=== PATIENT | female | born 1970 | race Caucasian/White ===

== ENCOUNTER 2016-06-14 20:31 | Emergency (ER) | payer BC ==
[~2016-06-14] VITALS: Ht 162.6 cm; Wt 61.5 kg
[~2016-06-14 20:31] MED LIST: BACTDS PO; CEPH-443 PO; CLOT21CR4 VAG; CLOT30CR24 TOP; FLUC150T17 PO; HYDR-906 PO; IBUP-1542 PO; MECL25TA2 PO; SULF1TAB31 PO; ULT50 PO
[2016-06-14 20:47] VITALS: Ht 162.6 cm; Wt 61.5 kg
[2016-06-14] MEDS ORDERED: KETOROLAC 30 MG INJ IV STA (23:16)
[2016-06-14 23:40] VITALS: TEMP 98
--- NOTE | 2016-06-14 23:48 | RADRPT ---
PROCEDURE: XR Chest. CLINICAL INDICATION: Chest Pain. TECHNIQUE: Single frontal chest x-ray. COMPARISON: None. FINDINGS: The lungs are clear. No focal opacification is seen. The cardiomediastinal silhouette is unremarka ble. Minimal S-shaped curvature of the thoracic spine is apparent. ECG leads projected over the ch est. IMPRESSION: 1. There is no acute cardiopulmonary process. RPTAT: HJES .Yasmani Mojica MD, MD Date Time Electronically viewed and signed by .Yasmani Mojica MD, on 06/14/2016 23:47 .S/
[2016-06-15 00:02] LABS: CHLORIDE 103 mmol/L (97-110); INR 0.96; POTASSIUM 4.1 mmol/L (3.5-5.1); PROTIME 12.8 Sec (12.2-14.2); SODIUM 143 mmol/L (135-144)
[2016-06-15 00:03] LABS: PARTIAL THROMBOPLASTIN TIME 30.9 Sec (25.0-35.0)
[2016-06-15 00:05] LABS: ANION GAP 17 (8-16); BLOOD UREA NITROGEN 14 mg/dl (7-20); CARBON DIOXIDE 27 mmol/L (21-31); CREATININE 0.53 mg/dl (0.44-1.00)
[2016-06-15 00:06] LABS: CALCIUM 9.4 mg/dl (8.4-10.2); GLUCOSE 93 mg/dl (70-220)
[2016-06-15 00:19] LABS: BASOPHILS % 0.4 % (0.0-2.0); EOSINOPHILS # 0.1 10^3/ul (0.0-0.5); EOSINOPHILS % 0.9 % (0.0-7.0); HEMATOCRIT 36.7 % (37.0-47.0); HEMOGLOBIN 12.4 g/dl (12.0-16.0); LYMPHOCYTES # 4.7 10^3/ul (0.8-2.9); LYMPHOCYTES % 40.7 % (15.0-51.0); MEAN CORPUSCULAR HEMOGLOBIN 32.2 pg (29.0-33.0); MEAN CORPUSCULAR HGB CONC 33.7 g/dl (32.0-37.0); MEAN CORPUSCULAR VOLUME 95.7 fl (82.0-101.0); MEAN PLATELET VOLUME 9.4 fl (7.4-10.4); MONOCYTE # 1.1 10^3/ul (0.3-0.9); MONOCYTES % 9.4 % (0.0-11.0); NEUTROPHIL # 5.7 10^3/ul (1.6-7.5); NEUTROPHILS % 48.6 % (39.0-77.0); PLATELET COUNT 310 10^3/UL (140-440); RED BLOOD COUNT 3.84 10^6/ul (4.20-5.40); RED CELL DISTRIBUTION WIDTH 12.9 % (11.5-14.5); UNCORRECTED WBC 11.6 10^3/ul (4.8-10.8); WHITE BLOOD COUNT 11.6 10^3/ul (4.8-10.8)
[2016-06-15 00:20] LABS: CONDITION 1
[2016-06-15 00:22] LABS: TROPONIN-I < 0.010 ng/ml (0.00-0.12)
[2016-06-15 01:30] VITALS: BP 118/70; PULSE 79; RESP 14
--- NOTE | 2016-06-15 04:10 | ERD ---
ER Documentation Chief Complaint Date/Time DATE: 06/15/16 TIME: 04:06 Chief Complaint CP since 1999 and ROMERO. HPI 46-year-old female with no significant past medical history presenting with left -sided chest pain. She states that the pain started while she was at work. She has had 3 episodes of sharp chest pain in the left side of her chest that lasts only a few seconds. She had no associated shortness of breath or sweating. She had mild dizziness. She also had a gradual onset bitemporal headache that is the only symptom she complains of now. Her chest pain has since resolved. She denies any fevers, chills, nausea, vomiting, vision change. No recent surgery, immobilization, estrogen use, or history of blood clotting disorder. ROS All systems reviewed and are negative except as per history of present illness. Medications Home Meds Active Scripts Fluconazole* (Diflucan*) 150 Mg Tablet, 150 MG PO DAILY for 1 Day, #1 TAB Prov:ALEJANDRO ARNOLD PA-C 04/05/16 Ibuprofen* (Motrin*) 600 Mg Tab, 600 MG PO Q6, #30 TAB Prov:ALEJANDRO ARNOLD PA-C 04/05/16 Hydrocodone/Acetaminophen ([place] 5-325 Tablet) 1 Each Tablet, 1 TAB PO Q6H Y for PAIN, #5 TAB Prov:ALEJANDRO ARNOLD PA-C 04/05/16 Sulfamethoxazole/Trimethoprim (Bactrim Ds Tablet) 1 Each Tablet, 1 EACH PO BID for 7 Days, TAB Prov:QUINCY VALENZUELA MD 03/29/16 Discontinued Scripts Ibuprofen* (Motrin*) 600 Mg Tab, 600 MG PO Q6H Y for PAIN AND OR ELEVATED TEMP, #30 TAB Prov:QUINCY VALENZUELA MD 03/29/16 Meclizine Hcl* (Antivert*) 25 Mg Tablet, 25 MG PO Q6H Y for DIZZINESS, #15 TAB Prov:MAGRI MCELAN MD 02/12/16 Ibuprofen* (Motrin*) 600 Mg Tab, 600 MG PO Q6, #14 TAB Prov:MARGI MCLEAN MD 02/12/16 Clotrimazole* (Gyne-Lotrimin 3*) 21 Gm Cream.appl, 1 APPLIC VAG HS for 3 Days, EA Prov:GER LOPEZ DO 09/30/15 Cephalexin* (Keflex*) 500 Mg Capsule, 500 MG PO QID for 5 Days, CAP Prov:GER LOPEZ DO 09/30/15 Tramadol HCl (Tramadol HCl) 50 Mg Tablet, 50 MG PO Q4 Y for PAIN, #10 TAB Prov:GER LOPEZ DO 09/30/15 Ibuprofen* (Motrin*) 600 Mg Tab, 600 MG PO Q6H Y for PAIN AND OR ELEVATED TEMP, #30 TAB Prov:CAR MENSAH. [employer] 07/24/15 Clotrimazole* (Clotrimazole* AF) 1% - 30 Gm Cream.gm., 1 APPLIC TOP BID for 14 Days, TUB Prov:CAR MENSAH [employer] 07/24/15 Cephalexin* (Keflex*) 500 Mg Capsule, 500 MG PO BID for 7 Days, CAP Prov:CAR MENSAH. [employer] 07/24/15 Ibuprofen* (Motrin*) 600 Mg Tab, 600 MG PO Q6, #20 TAB Prov:MARGI MCLEAN MD 05/29/15 Tramadol HCl (Tramadol HCl) 50 Mg Tablet, 50 MG PO Q4 Y for PAIN, #16 TAB Prov:MARGI MCLEAN MD 05/29/15 Fluconazole* (Diflucan*) 150 Mg Tablet, 150 MG PO ONCE, #2 TAB Take 1 tab po once. Take 1 tab once 1 week later. Prov:LISA TERRAZAS PA-C 04/03/15 Sulfamethoxazole-Trimethoprim* (Bactrim* DS) 800-160 Mg Tab, 1 TAB PO BID for 7 Days, TAB Prov:LISA TERRAZAS PA-C 04/03/15 Allergies Allergies: Coded Allergies: ciprofloxacin (Verified Allergy, Unknown, 02/12/16) PMhx/Soc Medical and Surgical Hx: pt denies Medical Hx, pt denies Surgical Hx History of Surgery: No Anesthesia Reaction: No Hx Neurological Disorder: No Hx Respiratory Disorders: No Hx Cardiac Disorders: No Hx Psychiatric Problems: No Hx Miscellaneous Medical Probl: No Hx Alcohol Use: No Hx Substance Use: No Hx Tobacco Use: No Smoking Status: Never smoker FmHx Family History: No coronary disease, No diabetes Physical Exam Vitals Vital Signs Date Time Temp Pulse Resp B/P Pulse Ox O2 Delivery O2 Flow Rate FiO2 06/15/16 01:30 79 14 118/70 98 Room Air 06/15/16 01:00 83 16 104/56 98 Room Air 06/15/16 00:00 76 20 134/82 100 Room Air 06/14/16 23:40 98.0 76 20 154/84 100 Room Air 06/14/16 20:47 97.9 81 16 158/77 99 Physical Exam Const: Well-appearing, no distress, nontoxic, no diaphoresis Head: Atraumatic Eyes: Normal Conjunctiva, Rebecca, EOMI ENT: Normal External Ears, Nose and Mouth. Neck: Full range of motion..~ No meningismus. Resp: Clear to auscultation bilaterally Cardio: Regular rate and rhythm, no murmurs Abd: Soft, non tender, non distended. Normal bowel sounds Skin: No petechiae or rashes Back: No midline or flank tenderness Ext: No cyanosis, or edema, 2+ distal pulses, equal bilaterally Neur: Awake and alert and oriented 3, cerebellar exam normal, gait normal, strength and sensations intact in all 4 extremities Psych: Normal Mood and Affect Result Diagram: 06/14/165 06/14/16 2325 Results 24 hrs Laboratory Tests Test 06/14/16 23:25 Activated Partial Thromboplast Time 30.9Sec Anion Gap 17 Basophils # 0.010^3/ul Basophils % 0.4% Blood Urea Nitrogen 14mg/dl Calcium Level 9.4mg/dl Carbon Dioxide Level 27mmol/L Chloride Level 103mmol/L Creatinine 0.53mg/dl Eosinophils # 0.110^3/ul Eosinophils % 0.9% Glucose Level 93mg/dl Hematocrit 36.7% Hemoglobin 12.4g/dl INR International Normalized Ratio 0.96 Lymphocytes # 4.710^3/ul Lymphocytes % 40.7% Mean Corpuscular Hemoglobin 32.2pg Mean Corpuscular Hemoglobin Concent 33.7g/dl Mean Corpuscular Volume 95.7fl Mean Platelet Volume 9.4fl Monocytes # 1.110^3/ul Monocytes % 9.4% Neutrophils # 5.710^3/ul Neutrophils % 48.6% Nucleated Red Blood Cells # 0.010^3/ul Nucleated Red Blood Cells % 0.0/100WBC Platelet Count 58459^3/UL Potassium Level 4.1mmol/L Prothrombin Time 12.8Sec Prothrombin Time Ratio 1.0 Red Blood Count 3.8410^6/ul Red Cell Distribution Width 12.9% Sodium Level 143mmol/L Troponin I < 0.010ng/ml White Blood Count 11.610^3/ul Current Medications Medications (Trade) Dose Ordered Sig/Rhys Route PRN Reason Start Time Stop Time Status Last Admin Dose Admin Ketorolac Tromethamine (Toradol) 30 mg ONCE STAT IV 06/14/16 23:16 06/14/16 23:18 DC 06/14/16 23:34 Procedures/MDM EKG: Rate/Rhythm: Normal Sinus Rhythm QRS, ST, T-waves: No changes consistent w/ acute ischemia Impression: No evidence of ischemia or arrhythmia The patient presents with chest pain. Vitals are stable. I considered pulmonary embolism, aortic dissection, pneumothorax among other diagnoses. For her headache, her symptoms are most consistent with a tension headache. I have a low suspicion for acute intracranial hemorrhage, meningitis, encephalitis, stroke or carotid dissection. Toradol was given for her headache with resolution EKG showed no evidence of ischemia. Labs were all within normal limits. Shared decision making occurred with patient and the decision has been made to discharge the patient for outpatient evaluation within 72 hours. Patient instructed to arrange follow up with PCP in the next 2 days and return to the ED for any new or worsening symtpoms. Departure Diagnosis: Primary Impression: Chest pain in adult Additional Impression: Headache Headache type: tension-type Headache chronicity pattern: acute headache Intractability: not intractable Qualified Code: G44.209 - Acute non intractable tension-type headache Condition: Stable Patient Instructions: Self-Care for Headaches, Chest Pain, Uncertain Cause SUSAN HENDERSON MD Jun 15, 2016 04:10
== END 2016-06-15 03:20 | disposition home or self-care (01) ==
LOC: E/R 20:31
DX: R07.9 Chest pain, unspecified (principal); G44.209 Tension-type headache, unspecified, not intractable; R40.2142 Coma scale, eyes open, spontaneous, at arrival to emergency department; R40.2362 Coma scale, best motor response, obeys commands, at arrival to emergency department; R40.2252 Coma scale, best verbal response, oriented, at arrival to emergency department
CPT/HCPCS: 36415; 71010; 80048; 84484; 85025; 85610; 85730; 93005; 96374; J1885; Z7502

== ENCOUNTER 2016-10-10 11:57 | Emergency (ER) | payer BC ==
[~2016-10-10] VITALS: Ht 160 cm; Wt 59.0 kg
[~2016-10-10 11:57] MED LIST changes: -BACTDS PO; -CEPH-443 PO; -CLOT21CR4 VAG; -CLOT30CR24 TOP; -MECL25TA2 PO; -ULT50 PO
[2016-10-10 12:02] VITALS: Ht 160 cm; Wt 59.0 kg
[2016-10-10] MEDS ORDERED: KETOROLAC 30 MG INJ IV STA (13:16)
[2016-10-10 13:41] LABS: ADD SCAN DIFF NO
[2016-10-10 13:44] LABS: HEMATOCRIT 35.8 % (37.0-47.0); MEAN CORPUSCULAR HEMOGLOBIN 31.9 pg (29.0-33.0); MEAN CORPUSCULAR HGB CONC 33.5 g/dl (32.0-37.0); MEAN CORPUSCULAR VOLUME 95.2 fl (82.0-101.0); PLATELET COUNT 297 10^3/UL (140-415); RED BLOOD COUNT 3.76 10^6/ul (4.20-5.40); RED CELL DISTRIBUTION WIDTH 13.2 % (11.5-14.5); WHITE BLOOD COUNT 8.2 10^3/ul (4.8-10.8)
[2016-10-10 13:46] LABS: MEAN PLATELET VOLUME 11.6 fl (7.4-10.4)
[2016-10-10 14:01] LABS: ALBUMIN 4.5 g/dl (3.3-4.9); ALBUMIN/GLOBULIN RATIO 1.04; BILIRUBIN,INDIRECT 0.2 mg/dl (0-1.1); BILIRUBIN,TOTAL 0.2 mg/dl (0.2-1.3); CALCIUM 9.5 mg/dl (8.4-10.2); CREATININE 0.51 mg/dl (0.44-1.00); POTASSIUM 4.2 mmol/L (3.5-5.1); TOTAL PROTEIN 8.8 g/dl (6.1-8.1)
[2016-10-10 14:20] LABS: ADD UMIC YES; URINE BILIRUBIN (Dip) NEGATIVE (NEGATIVE); URINE BLOOD (Dip) 2+ (NEGATIVE); URINE COLOR LT. YELLOW (YELLOW); URINE GLUCOSE (Dip) NEGATIVE (NEGATIVE); URINE KETONES (Dip) NEGATIVE (NEGATIVE); URINE LEUKOCYTE ESTERASE (Dip) 2+ (NEGATIVE); URINE NITRITE (Dip) NEGATIVE (NEGATIVE); URINE TOTAL PROTEIN (Dip) NEGATIVE (NEGATIVE); URINE UROBILINOGEN (Dip) 0.2 E.U./dL (0.1-1.0)
[2016-10-10 14:34] LABS: URINE RBCS 0-2 /HPF (0)
[2016-10-10 14:35] LABS: BACTERIA,URINE FEW
[2016-10-10 14:51] LABS: LYMPHOCYTES # 5.2 10^3/ul (0.8-2.9); MONOCYTE # 0.7 10^3/ul (0.3-0.9); NEUTROPHIL # 2.2 10^3/ul (1.6-7.5)
[2016-10-10 14:52] LABS: PLATELETS CLUMPS OCCASIONAL
[2016-10-10] MEDS ORDERED: CEFTRIAXONE 1 GM/50 ML (PMX) 50 ML IVPB ONE (15:30)
[2016-10-10] MEDS ORDERED: CEPH-443 PO (15:31)
[2016-10-10] MEDS ORDERED: IBUP-1542 PO (15:34)
--- NOTE | 2016-10-10 15:46 | ERD ---
ER Documentation Chief Complaint Date/Time DATE: 10/10/16 TIME: 15:45 Chief Complaint lower abdominal pain x2 days HPI This 46-year-old female complains of lower abdominal pain for 2 days. She possibly has some urinary complaints. She denies fevers, vomiting. She denies any specific right or left-sided pain. The pain is mostly in the middle of the lower abdomen. ROS All systems reviewed and are negative except as per history of present illness. Medications Home Meds Active Scripts Ibuprofen* (Motrin*) 600 Mg Tab, 600 MG PO Q6, #15 TAB Prov:MARGI MCLEAN MD 10/10/16 Cephalexin* (Keflex*) 500 Mg Capsule, 500 MG PO QID for 5 Days, CAP Prov:MARGI MCLEAN MD 10/10/16 Fluconazole* (Diflucan*) 150 Mg Tablet, 150 MG PO DAILY for 1 Day, #1 TAB Prov:ALEJANDRO ARNOLD PA-C 04/05/16 Ibuprofen* (Motrin*) 600 Mg Tab, 600 MG PO Q6, #30 TAB Prov:ALEJANDRO ARNOLD PA-C 04/05/16 Hydrocodone/Acetaminophen ([place] 5-325 Tablet) 1 Each Tablet, 1 TAB PO Q6H Y for PAIN, #5 TAB Prov:ALEJANDRO ARNOLD PA-C 04/05/16 Sulfamethoxazole/Trimethoprim* (Bactrim Ds* Tablet) 1 Each Tablet, 1 EACH PO BID for 7 Days, TAB Prov:QUINCY VALENZUELA MD 03/29/16 Allergies Allergies: Coded Allergies: ciprofloxacin (Verified Allergy, Unknown, 02/12/16) PMhx/Soc Medical and Surgical Hx: pt denies Medical Hx History of Surgery: Yes (c/s) Anesthesia Reaction: No Hx Neurological Disorder: No Hx Respiratory Disorders: No Hx Cardiac Disorders: No Hx Psychiatric Problems: No Hx Miscellaneous Medical Probl: No Hx Alcohol Use: No Hx Substance Use: No Hx Tobacco Use: No Smoking Status: Never smoker Physical Exam Vitals Vital Signs Date Time Temp Pulse Resp B/P Pulse Ox O2 Delivery O2 Flow Rate FiO2 10/10/16 12:02 97.9 78 18 132/86 98 Physical Exam Const: [] Head: Atraumatic Eyes: Normal Conjunctiva ENT: Normal External Ears, Nose and Mouth. Neck: Full range of motion..~ No meningismus. Resp: Clear to auscultation bilaterally Cardio: Regular rate and rhythm, no murmurs Abd: Soft, mild lower abdominal tenderness primarily in the suprapubic and lower abdomen. No tenderness at McBurney's point no Burdick sign. No rebound., non distended. Normal bowel sounds Skin: No petechiae or rashes Back: No midline or flank tenderness Ext: No cyanosis, or edema Neur: Awake and alert Psych: Normal Mood and Affect Result Diagram: 10/10/16 1335 10/10/16 1335 Results 24 hrs Laboratory Tests Test 10/10/16 13:30 10/10/16 13:35 Urine Color LT. YELLOW Urine Clarity CLEAR Urine pH 6.5 Urine Specific [place] 1.010 Urine Ketones NEGATIVE Urine Nitrite NEGATIVE Urine Bilirubin NEGATIVE Urine Urobilinogen 0.2 E.U./dL Urine Leukocyte Esterase 2+ Urine Microscopic RBC 0-2/HPF Urine Microscopic WBC 10-25/HPF Urine Epithelial Cells FEW Urine Bacteria FEW Urine Hemoglobin 2+ Urine Glucose NEGATIVE% Urine Total Protein NEGATIVE White Blood Count 8.210^3/ul Red Blood Count 3.7610^6/ul Hemoglobin 12.0g/dl Hematocrit 35.8% Mean Corpuscular Volume 95.2fl Mean Corpuscular Hemoglobin 31.9pg Mean Corpuscular Hemoglobin Concent 33.5g/dl Red Cell Distribution Width 13.2% Platelet Count 56483^3/UL Mean Platelet Volume 11.6fl Neutrophils % 27.0% Lymphocytes % 64.0% Monocytes % 9.0% Neutrophils # 2.210^3/ul Lymphocytes # 5.210^3/ul Monocytes # 0.710^3/ul Clumped Platelets OCCASIONAL Sodium Level 140mmol/L Potassium Level 4.2mmol/L Chloride Level 104mmol/L Carbon Dioxide Level 27mmol/L Anion Gap 13 Blood Urea Nitrogen 12mg/dl Creatinine 0.51mg/dl Glucose Level 89mg/dl Calcium Level 9.5mg/dl Total Bilirubin 0.2mg/dl Direct Bilirubin 0.00mg/dl Indirect Bilirubin 0.2mg/dl Aspartate Amino Transf (AST/SGOT) 40IU/L Alanine Aminotransferase (ALT/SGPT) 37IU/L Alkaline Phosphatase 84IU/L Total Protein 8.8g/dl Albumin 4.5g/dl Globulin 4.30g/dl Albumin/Globulin Ratio 1.04 Lipase 64U/L Current Medications Medications (Trade) Dose Ordered Sig/Rhys Route PRN Reason Start Time Stop Time Status Last Admin Dose Admin Ketorolac Tromethamine 30 mg 30 mg ONCE STAT IV 10/10/16 13:16 10/10/16 13:17 DC 10/10/16 13:32 Ceftriaxone Sodium (Rocephin) 50 ml @ 100 mls/hr ONCE ONCE IVPB 10/10/16 15:30 10/10/16 15:59 10/10/16 15:30 Procedures/MDM Given the uncertain cause of lower abdominal pain CBC shows no acute abnormalities and CMP is normal. Shows positive leukocytes and hemoglobin and bacteria with few epithelial cells. Urine was sent for culture. Patient was given Rocephin 1 g IV and Toradol 60 mg IM. Patient presents with lower abdominal pain of uncertain etiology for 2 days without fever, vomiting or current signs of appendicitis. She has signs of UTI and will be treated for this with Keflex. Patient should return the next day for worsening pain, fevers , vomiting, new worsening symptoms or primary care doctor this week. Departure Diagnosis: Primary Impression: UTI (lower urinary tract infection) Additional Impression: Abdominal pain Abdominal location: lower abdomen, unspecified Qualified Code: R10.30 - Lower abdominal pain Patient Instructions: Understanding Urinary Tract Infections (UTIs), Abdominal Pain, Unknown Cause, (Female) Additional Instructions: VAMOS A TRATAR PARA INFECCION EN ORINA. Cheque otro vez con angel doctor primario en el proximo valadez or regresa para mas o nueva simptomas- FIEBRE , DOLOR ABAJO Y DERECHO.. MARGI MCLEAN MD October 10, 2016 15:46
[2016-10-10] MEDS ORDERED: FLUC150T17 PO (16:14)
== END 2016-10-10 16:12 | disposition home or self-care (01) ==
LOC: FTE 11:57
DX: N39.0 Urinary tract infection, site not specified (principal)
CPT/HCPCS: 36415; 80053; 81001; 83690; 85025; 96374; 96375; J0696; J1885; Z7502; 81003

== ENCOUNTER 2017-10-20 23:16 | Emergency (ER) | END 2017-10-21 01:57 | disposition home or self-care (01) ==

== ENCOUNTER 2017-12-09 17:16 | Emergency (ER) | END 2017-12-09 19:42 | disposition home or self-care (01) ==

== ENCOUNTER 2018-02-25 09:51 | Emergency (ER) | END 2018-02-25 14:48 | disposition home or self-care (01) ==

== ENCOUNTER 2018-08-02 10:55 | Emergency (ER) | payer OTHER ==
[~2018-08-02] VITALS: Wt 78.0 kg
[~2018-08-02 10:55] MED LIST changes: +AMOX500C2 PO; +AZIT250T PO; +CARB15DR50 LEFT EAR; +CEFD300C2 PO; +CEPH-443 PO; +CIPR500T4 PO; +FLUC150T PO; -FLUC150T17 PO; +HYDR-4011 PO; -HYDR-906 PO; +IBUP800T48 PO; +MECL-77 PO; +NAPR-688 PO; +NITR-58 PO; +ONDA4TAB14 PO; +PHEN-537 PO; +PHEN-538 PO; +PHEN177S43 MT
[2018-08-02 10:58] VITALS: Wt 78.0 kg
[2018-08-02] MEDS ORDERED: ONDANSETRON 4 MG INJ IV STA (14:27)
[2018-08-02] MEDS ORDERED: KETOROLAC 30 MG INJ IV STA (14:27)
[2018-08-02] MEDS ORDERED: NITR-58 PO (16:07)
[2018-08-02] MEDS ORDERED: IBUP-1542 PO (16:39)
[2018-08-02] MEDS ORDERED: ONDA4TAB14 PO (16:39)
--- NOTE | 2018-08-02 17:02 | ERD ---
ER Documentation Chief Complaint Chief Complaint GENERALIZED ABD PAIN X 1 WEEK HPI Patient is a 48-year-old female with no medical problems who presents with abdominal pain. The patient has right lower quadrant abdominal pain. She went to her primary doctor recently and was given antibiotics and pain medications but is still having pain. She says the pain started 5 days ago. The pain is worsening. She had subjective fever but did not take her temperature. She feels dizzy. Upon review of old medical records the patient has multiple visits to the ER for various complaints. She said that her primary doctor is Dr. Black. ROS All systems reviewed and are negative except as per history of present illness. Medications Home Meds Active Scripts Ondansetron (Ondansetron Odt) 4 Mg Tab.rapdis, 4 MG PO Q6H PRN for NAUSEA AND/OR VOMITING, #10 TAB Prov:CORINNA DAVID MD 08/02/18 Ibuprofen* (Motrin*) 600 Mg Tab, 600 MG PO Q6H PRN for PAIN AND OR ELEVATED TEMP, #30 TAB Prov:CORINNA DAVID MD 08/02/18 Reported Medications Nitrofurantoin Monohyd Macrocr* (Macrobid*) 100 Mg Capsr, 100 MG PO BID, CAP FOR 5 DAYS, END DATE 08/02/18 08/02/18 Discontinued Scripts Nitrofurantoin Monohyd Macrocr* (Macrobid*) 100 Mg Capsr, 100 MG PO BID for 7 Days, CAP Prov:CORINNA DAVID MD 03/01/18 Phenazopyridine Hcl* (Pyridium*) 200 Mg Tab, 200 MG PO TID PRN for URINARY PAIN, #6 TAB Prov:JULIO EDUARDO PA-C 02/25/18 Cefdinir (Cefdinir) 300 Mg Capsule, 300 MG PO BID for 14 Days, CAP Prov:JULIO EDUARDO PA-C 02/25/18 Phenazopyridine Hcl* (Pyridium*) 100 Mg Tab, 100 MG PO TID PRN for URINARY PAIN, #8 TAB Prov:MARS KAUR DO 12/09/17 Naproxen* (Naproxen*) 500 Mg Tablet, 500 MG PO BID PRN for PAIN, #20 TAB Prov:MARS KAUR DO 12/09/17 Ondansetron (Ondansetron Odt) 4 Mg Tab.rapdis, 4 MG PO Q6H PRN for NAUSEA AND/OR VOMITING, #10 TAB Prov:MARS KAUR DO 12/09/17 Ciprofloxacin Hcl* (Ciprofloxacin Hcl*) 500 Mg Tablet, 500 MG PO BID for 10 Days, TAB Prov:MARS KAUR DO 12/09/17 Ibuprofen* (Motrin*) 600 Mg Tab, 600 MG PO Q6, #30 TAB Prov:JOSE RAMON SOLIS PA-C 10/21/17 Phenol* (Chloraseptic* [place]) 177 Ml [place].pump, 2 SPRAY MT Q2H PRN for SORE THROAT, #1 BOTTLE Prov:JOSE RAMON SOLIS PA-C 10/21/17 Azithromycin* (Zithromax*) 250 Mg Tablet, 250 MG PO .ZPACK DIRECTED, #6 TAB TAKE 500 MG (2 TABS) THE FIRST DAY THEN 250 MG (1 TAB) DAYS 2-5 Prov:JOSE RAMON SOLIS PA-C 10/21/17 Meclizine Hcl* (Meclizine Hcl*) 25 Mg Tablet, 25 MG PO QHS PRN for DIZZINESS, #10 TAB Prov:MARS KAUR DO 11/01/16 Hydrocodone/Acetaminophen ([place] 5-325 Tablet) 1 Each Tablet, 1 EACH PO Q6 PRN for SEVERE PAIN LEVEL 7-10, #7 TAB Prov:MARS KAUR DO 11/01/16 Ibuprofen* (Motrin*) 800 Mg Tab, 800 MG PO Q6, #30 TAB Prov:MARS KAUR DO 11/01/16 Amoxicillin* (Amoxicillin*) 500 Mg Cap, 500 MG PO BID, #20 CAP Prov:MARS KAUR DO 11/01/16 Carbamide Peroxide* (Debrox*) 6.5% - 15 Ml Drops, 10 DROP LEFT EAR BID for 5 Days, BOTTLE Prov:MARS KAUR DO 11/01/16 Fluconazole* (Diflucan*) 150 Mg Tablet, 150 MG PO ONCE, #1 TAB Prov:MARGI MCLEAN MD 10/10/16 Ibuprofen* (Motrin*) 600 Mg Tab, 600 MG PO Q6, #15 TAB Prov:MARGI MCLEAN MD 10/10/16 Cephalexin* (Keflex*) 500 Mg Capsule, 500 MG PO QID for 5 Days, CAP Prov:MARGI MCLEAN MD 10/10/16 Fluconazole* (Diflucan*) 150 Mg Tablet, 150 MG PO DAILY for 1 Day, #1 TAB Prov:ALEJANDRO ARNOLD PA-C 04/05/16 Ibuprofen* (Motrin*) 600 Mg Tab, 600 MG PO Q6, #30 TAB Prov:ALEJANDRO ARNOLD PA-C 04/05/16 Hydrocodone/Acetaminophen ([place] 5-325 Tablet) 1 Each Tablet, 1 TAB PO Q6H PRN for PAIN, #5 TAB Prov:ALEJANDRO ARNOLD PA-C 04/05/16 Sulfamethoxazole/Trimethoprim* (Bactrim Ds* Tablet) 1 Each Tablet, 1 EACH PO BID for 7 Days, TAB Prov:QUINCY VALENZUELA MD 03/29/16 Allergies Allergies: Coded Allergies: hydrocodone (Verified Allergy, Mild, rash, 08/02/18) ciprofloxacin (Verified Adverse Reaction, Unknown, dizziness/vomiting., 08/02/18) PMhx/Soc Medical and Surgical Hx: pt denies Medical Hx, pt denies Surgical Hx History of Surgery: Yes (c/s) Anesthesia Reaction: No Hx Neurological Disorder: No Hx Respiratory Disorders: No Hx Cardiac Disorders: No Hx Psychiatric Problems: No Hx Miscellaneous Medical Probl: No Hx Alcohol Use: No Hx Substance Use: No Hx Tobacco Use: No Smoking Status: Never smoker FmHx Family History: diabetes Physical Exam Vitals Vital Signs Date Temp Pulse Resp B/P (MAP) Pulse Ox O2 O2 Flow FiO2 Time Delivery Rate 08/02/18 69 16 104/57 100 Room Air 16:05 (73) 08/02/18 70 18 122/96 99 Room Air 15:02 (105) 08/02/18 98.1 79 18 139/65 99 10:58 (89) Physical Exam Const: No acute distress Head: Atraumatic Eyes: Normal Conjunctiva ENT: Normal External Ears, Nose and Mouth. Neck: Full range of motion. No meningismus. Resp: Clear to auscultation bilaterally Cardio: Regular rate and rhythm, no murmurs Abd: Soft, right lower quadrant tenderness to palpation without rebound or guarding Skin: No petechiae or rashes Back: No midline or flank tenderness Ext: No cyanosis, or edema Neur: Awake and alert Psych: Normal Mood and Affect Result Diagram: 08/02/18 1453 08/02/18 1453 Results 24 hrs Laboratory Tests Test 08/02/18 14:53 White Blood Count 9.5 10^3/ul Red Blood Count 3.75 10^6/ul Hemoglobin 11.7 g/dl Hematocrit 35.7 % Mean Corpuscular Volume 95.2 fl Mean Corpuscular Hemoglobin 31.2 pg Mean Corpuscular Hemoglobin Concent 32.8 g/dl Red Cell Distribution Width 13.3 % Platelet Count 359 10^3/UL Mean Platelet Volume 10.8 fl Immature Granulocytes % 0.300 % Neutrophils % % Segmented Neutrophils % (Manual) 33 % Band Neutrophils % (Manual) 1 % Lymphocytes % % Lymphocytes % (Manual) 55 % Reactive Lymphocytes % (Manual) 6 % Monocytes % % Monocytes % (Manual) 3 % Eosinophils % % Eosinophils % (Manual) 2 % Basophils % % Nucleated Red Blood Cells % 0.0 /100WBC Immature Granulocytes # 0.030 10^3/ul Neutrophils # 10^3/ul Neutrophils # (Manual) 3.1 10^3/ul Band Neutrophils # 0.0 10^3/ul Lymphocytes (Manual) 5.2 10^3/ul Lymphocytes # 10^3/ul Reactive Lymphocytes # 0.5 10^3/ul Monocytes # 10^3/ul Monocytes # (Manual) 0.2 10^3/ul Eosinophils # 10^3/ul Basophils # 10^3/ul Nucleated Red Blood Cells # 10^3/ul Platelet Estimate NORMAL Urine Color STRAW Urine Clarity CLEAR Urine pH 7.0 Urine Specific [place] 1.005 Urine Ketones NEGATIVE mg/dL Urine Nitrite NEGATIVE mg/dL Urine Bilirubin NEGATIVE mg/dL Urine Urobilinogen NEGATIVE mg/dL Urine Leukocyte Esterase 1+ [place]/ul Urine Microscopic RBC 1 /HPF Urine Microscopic WBC 1 /HPF Urine Squamous Epithelial Cells FEW /HPF Urine Bacteria FEW /HPF Urine Hemoglobin 2+ mg/dL Urine Glucose NEGATIVE mg/dL Urine Total Protein NEGATIVE mg/dl Urine Test NEGATIVE Sodium Level 144 mmol/L Potassium Level 4.0 mmol/L Chloride Level 105 mmol/L Carbon Dioxide Level 27 mmol/L Anion Gap 12 Blood Urea Nitrogen 13 mg/dl Creatinine 0.48 mg/dl Est Glomerular Filtrat Rate mL/min > 60 mL/min Glucose Level 90 mg/dl Calcium Level 9.5 mg/dl Total Bilirubin 0.3 mg/dl Direct Bilirubin 0.00 mg/dl Indirect Bilirubin 0.3 mg/dl Aspartate Amino Transf (AST/SGOT) 28 IU/L Alanine Aminotransferase (ALT/SGPT) 26 IU/L Alkaline Phosphatase 97 IU/L Total Protein 8.2 g/dl Albumin 4.5 g/dl Globulin 3.70 g/dl Albumin/Globulin Ratio 1.21 Lipase 62 U/L Current Medications Medications Dose Sig/Rhys Start Time Status Last (Trade) Ordered Route PRN Stop Time Admin Dose Reason Admin Ondansetron 4 mg ONCE STAT 08/02/18 DC 08/02/18 HCl (Zofran IV 14:27 08/02/18 14:45 Inj) 14:28 Ketorolac 30 mg ONCE STAT 08/02/18 DC 08/02/18 Tromethamine IV 14:27 08/02/18 14:45 (Toradol) 14:28 Procedures/MDM CT abdomen pelvis shows no surgical process per radiology. Patient is a 48-year-old female with no medical problems who presents with abdominal pain. The patient had a full workup including laboratory studies, urinalysis, and CT scan. CT scan shows no signs of appendicitis or serious surgical process. Laboratory studies are basically normal. Urinalysis shows no sign of infection. At this point I believe outpatient management is appropria te. I doubt appendicitis, cholecystitis, pancreatitis, or bowel obstruction. The patient can return for any worsening symptoms. Departure Diagnosis: Primary Impression: Abdominal pain Abdominal location: right lower quadrant Qualified Codes: R10.31 - Right lower quadrant pain Condition: Fair Patient Instructions: Abdominal Pain Referrals: Your doctor Additional Instructions: Llame al doctor MAANA y linda luz elena DOMINICK PARA DENTRO DE 1-2 FLOR.Dgale a la secretaria que nosotros le instruimos hacer esta dominick.Avise o llame si angel condicin se empeora antes de la dominick. Regresa aqui si peor o no mejor. CORINNA DAVID MD Aug 02, 2018 17:02
[2018-08-02 17:05] VITALS: BP 127/65; PULSE 68; RESP 16
== END 2018-08-02 17:06 | disposition home or self-care (01) ==
LOC: E/R 10:55
DX: R10.31 Right lower quadrant pain (principal)
CPT/HCPCS: 74176; 80053; 81001; 83690; 84703; 85025; J1885; J2405; 36415; 96374; 96375

== ENCOUNTER 2018-10-02 11:48 | Emergency (ER) | payer OTHER ==
[~2018-10-02] VITALS: Wt 66.2 kg
[~2018-10-02 11:48] MED LIST changes: -AMOX500C2 PO; -AZIT250T PO; -CARB15DR50 LEFT EAR; -CEFD300C2 PO; -CEPH-443 PO; -CIPR500T4 PO; -FLUC150T PO; -HYDR-4011 PO; -IBUP800T48 PO; -MECL-77 PO; -NAPR-688 PO; -PHEN-537 PO; -PHEN-538 PO; -PHEN177S43 MT; -SULF1TAB31 PO
[2018-10-02] MEDS ORDERED: KETOROLAC 30 MG INJ IV STA (12:33)
[2018-10-02] MEDS ORDERED: BENA20TA4 PO (13:50)
[2018-10-02] MEDS ORDERED: IBUP-1542 PO (14:33)
--- NOTE | 2018-10-02 14:35 | ERD ---
ER Documentation Chief Complaint Chief Complaint PELVIC PAIN, CHEST PAIN HPI Patient is a 48-year-old female with hypertension who presents with abdominal pain. The patient has right lower quadrant abdominal pain, chest pain, and he adache. She was sent by her doctor for evaluation. She has had the symptoms for the past 6 days. The pain is been constant. She thought she might have a UTI. She tried "some medicine" but was not better. She cannot remove the name of the medications. She has had similar abdominal pain in the past and has had 3 CT scans of the abdomen and pelvis over the past 1 year. Upon review of old medical records the patient has multiple visits to the ER for various complaints. Her primary doctor is Dr. Black. ROS All systems reviewed and are negative except as per history of present illness. Medications Home Meds Active Scripts Ibuprofen* (Motrin*) 600 Mg Tab, 600 MG PO Q6H PRN for PAIN AND OR ELEVATED TEMP, #30 TAB Prov:CORINNA DAVID MD 10/02/18 Reported Medications Benazepril Hcl* (Benazepril Hcl*) 20 Mg Tablet, 20 MG PO DAILY, #30 TAB 10/02/18 Discontinued Reported Medications Nitrofurantoin Monohyd Macrocr* (Macrobid*) 100 Mg Capsr, 100 MG PO BID, CAP FOR 5 DAYS, END DATE 08/02/18 08/02/18 Discontinued Scripts Ondansetron (Ondansetron Odt) 4 Mg Tab.rapdis, 4 MG PO Q6H PRN for NAUSEA AND/OR VOMITING, #10 TAB Prov:CORINNA DAVID MD 08/02/18 Ibuprofen* (Motrin*) 600 Mg Tab, 600 MG PO Q6H PRN for PAIN AND OR ELEVATED TEMP, #30 TAB Prov:CORINNA DAVID MD 08/02/18 Allergies Allergies: Coded Allergies: hydrocodone (Verified Allergy, Mild, rash, 10/02/18) ciprofloxacin (Verified Adverse Reaction, Unknown, dizziness/vomiting., 10/02/18) PMhx/Soc History of Surgery: No Anesthesia Reaction: No Hx Neurological Disorder: No Hx Respiratory Disorders: No Hx Cardiac Disorders: Yes (htn ) Hx Psychiatric Problems: Yes (anxiety ) Hx Miscellaneous Medical Probl: No Hx Alcohol Use: No Hx Substance Use: No Hx Tobacco Use: No Smoking Status: Never smoker FmHx Family History: coronary disease Physical Exam Vitals Vital Signs Date Temp Pulse Resp B/P (MAP) Pulse Ox O2 O2 Flow FiO2 Time Delivery Rate 10/02/18 98.1 76 18 132/76 99 Room Air 15:02 (94) 10/02/18 83 18 134/76 99 Room Air 13:19 (95) 10/02/18 99.2 85 18 192/86 99 11:59 (121) Physical Exam Const: No acute distress Head: Atraumatic Eyes: Normal Conjunctiva ENT: Normal External Ears, Nose and Mouth. Neck: Full range of motion. No meningismus. Resp: Clear to auscultation bilaterally Cardio: Regular rate and rhythm, no murmurs Abd: Soft, diffuse tenderness to palpation without rebound or guarding Skin: No petechiae or rashes Back: No midline or flank tenderness Ext: No cyanosis, or edema Neur: Awake and alert Psych: Normal Mood and Affect Result Diagram: 10/02/18 1239 10/02/18 1239 Results 24 hrs Laboratory Tests Test 10/02/18 12:36 10/02/18 12:38 10/02/18 12:39 Bedside Urine pH (LAB) 7.0 Bedside Urine Protein (LAB) Negative Bedside Urine Glucose (UA) Negative Bedside Urine Ketones (LAB) Negative Bedside Urine Blood 2+ Bedside Urine Nitrite (LAB) Negative Bedside Urine Leukocyte Esterase (L 1+ POC Beta HCG, Qualitative NEGATIVE White Blood Count 9.9 10^3/ul Red Blood Count 3.97 10^6/ul Hemoglobin 12.4 g/dl Hematocrit 38.3 % Mean Corpuscular Volume 96.5 fl Mean Corpuscular Hemoglobin 31.2 pg Mean Corpuscular Hemoglobin Concent 32.4 g/dl Red Cell Distribution Width 13.1 % Platelet Count 371 10^3/UL Mean Platelet Volume 10.4 fl Immature Granulocytes % 0.100 % Neutrophils % 31.9 % Lymphocytes % 58.1 % Monocytes % 7.6 % Eosinophils % 1.5 % Basophils % 0.8 % Nucleated Red Blood Cells % 0.0 /100WBC Immature Granulocytes # 0.010 10^3/ul Neutrophils # 3.2 10^3/ul Lymphocytes # 5.8 10^3/ul Monocytes # 0.8 10^3/ul Eosinophils # 0.2 10^3/ul Basophils # 0.1 10^3/ul Nucleated Red Blood Cells # 0.0 10^3/ul Urine Color COLORLESS Urine Clarity CLEAR Urine pH 7.0 Urine Specific [place] 1.001 Urine Ketones NEGATIVE mg/dL Urine Nitrite NEGATIVE mg/dL Urine Bilirubin NEGATIVE mg/dL Urine Urobilinogen NEGATIVE mg/dL Urine Leukocyte Esterase 1+ [place]/ul Urine Microscopic RBC 1 /HPF Urine Microscopic WBC 2 /HPF Urine Bacteria FEW /HPF Urine Hemoglobin 2+ mg/dL Urine Glucose NEGATIVE mg/dL Urine Total Protein NEGATIVE mg/dl Sodium Level 146 mmol/L Potassium Level 4.2 mmol/L Chloride Level 105 mmol/L Carbon Dioxide Level 29 mmol/L Anion Gap 12 Blood Urea Nitrogen 14 mg/dl Creatinine 0.51 mg/dl Est Glomerular Filtrat Rate mL/min > 60 mL/min Glucose Level 118 mg/dl Calcium Level 10.0 mg/dl Total Bilirubin 0.3 mg/dl Direct Bilirubin 0.00 mg/dl Indirect Bilirubin 0.3 mg/dl Aspartate Amino Transf (AST/SGOT) 35 IU/L Alanine Aminotransferase (ALT/SGPT) 33 IU/L Alkaline Phosphatase 109 IU/L Troponin I < 0.012 ng/ml Total Protein 8.8 g/dl Albumin 4.7 g/dl Globulin 4.10 g/dl Albumin/Globulin Ratio 1.14 Lipase 74 U/L Current Medications Medications Dose Sig/Rhys Start Time Status Last (Trade) Ordered Route PRN Stop Time Admin Dose Reason Admin Ketorolac 30 mg ONCE STAT 10/02/18 DC 10/02/18 Tromethamine IV 12:33 10/02/18 12:44 (Toradol) 12:35 Procedures/MDM EKG read by me: Rate/Rhythm: Regular rate and rhythm at a rate of 88 Intervals: Normal Impression: Sinus with a normal rate with PVCs Ultrasound of the pelvis done by radiology. Patient is a 48-year-old female presents with abdominal pain, chest pain, and headache. At this point I doubt appendicitis, cholecystitis, pancreatitis, or bowel obstruction. I doubt serious intracranial process. I doubt acute coronary syndrome. I talked with the patient regarding possibly doing another CT scan but I think the risks outweigh the benefits given the fact that the patient has had 3 CT scans in the past 1 year. She can return for any worsening symptoms. Departure Diagnosis: Primary Impression: Abdominal pain Abdominal location: generalized Qualified Codes: R10.84 - Generalized abdominal pain Condition: Fair Patient Instructions: Abdominal Pain Referrals: KARLA BLACK MD Additional Instructions: Llame al doctor MAANA y linda luz elena DOMINICK PARA DENTRO DE 1-2 FLOR.Dgale a la secretaria que nosotros le instruimos hacer esta dominick.Avise o llame si angel condicin se empeora antes de la dominick. Regresa aqui si peor o no mejor. CORINNA DAVID MD October 02, 2018 14:35
[2018-10-02 15:02] VITALS: BP 132/76; PULSE 76; RESP 18
== END 2018-10-02 15:07 | disposition home or self-care (01) ==
LOC: E/R 11:48
DX: R10.84 Generalized abdominal pain (principal); I10 Essential (primary) hypertension
CPT/HCPCS: 36415; 76830; 76856; 80053; 81001; 81025; 83690; 84484; 85025; 93005; 96374; 99285; J1885; 81003